=== PATIENT | male | born 1990 | race Caucasian/White ===

== ENCOUNTER 2018-11-17 07:00 | Day surgery (SDC) | payer BC ==
[2018-11-17] MEDS ORDERED: MIDAZOLAM HCL 5 MG/5 ML VIAL ONE (07:18)
[2018-11-17] MEDS: MIDAZOLAM HCL 5 MG/5 ML VIAL ONE ×4 (08:14→08:23)
[2018-11-17] MEDS: MEPERIDINE HCL/PF 100 MG/ML AMP ONE ×2 (08:14→08:18)
[2018-11-17 09:28] VITALS: BP_SYST 137
== END 2018-11-17 09:20 | disposition home or self-care (01) ==
LOC: SDS 07:00 → SMU 07:00 → SDS 09:20
PROVIDERS: ATTEND Internal Medicine Gastroenterology
DX: K29.50 Unspecified chronic gastritis without bleeding (principal); K21.0 Gastro-esophageal reflux disease with esophagitis; K44.9 Diaphragmatic hernia without obstruction or gangrene; K29.70 Gastritis, unspecified, without bleeding; Z79.899 Other long term (current) drug therapy
CPT/HCPCS: 36415; 43239; 87081; 88305; 88312; 88313; J2175; J2250